=== PATIENT | female | born 2000 | race African-American/Black ===

== ENCOUNTER 2020-05-28 17:54 | Emergency (ER) | payer OTHER ==
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
[2020-05-28] MEDS ORDERED: ACETAMINOPHEN 325 MG TABLET PO STA (18:37)
[2020-05-28] MEDS ORDERED: IBUPROFEN 600 MG TABLET PO STA (18:37)
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
[2020-05-28 19:36] VITALS: BP 122/89
== END 2020-05-28 19:32 | disposition home or self-care (01) ==
LOC: ED 17:54
DX: S16.1XXA Strain of muscle, fascia and tendon at neck level, initial encounter (principal); V43.62XA Car passenger injured in collision with other type car in traffic accident, initial encounter; Y92.410 Unspecified street and highway as the place of occurrence of the external cause
CPT/HCPCS: 72040; 99284; A9270

== ENCOUNTER 2020-06-26 17:04 | Emergency (ER) | payer OTHER ==
[2020-06-26 17:22] LABS: BILIRUBIN,URINE NEGATIVE (NEGATIVE); GLUCOSE, URINE (UA) NEGATIVE (NEGATIVE); KETONES,URINE (UA) TRACE mg/dL (NEGATIVE); LEUKOCYTE ESTERASE, URINE NEGATIVE (NEGATIVE); NITRITE,URINE NEGATIVE (NEGATIVE); OCCULT BLOOD,URINE NEGATIVE (NEGATIVE); PROTEIN,URINE NEGATIVE (NEGATIVE); UROBILINOGEN,URINE 0.2 (NORMAL) E.U./dL (NORMAL)
[2020-06-26 17:24] LABS: CLARITY,URINE CLEAR (CLEAR)
--- NOTE | 2020-06-26 17:38 | ED Physician Documentation ---
History of Present Illness - Stated complaint Stated Complaint: FEM - Chief complaint Chief Complaint: General - History obtained from History obtained from: Patient - Additonal information Additional information: 19-year-old sexually active woman presents tonight asking for a "second opinion" [place]. [place] late May and tested positive for chlamydia. She took Zithromax at that time. Subsequently had follow-up testing which was also positive and was retreated with Zithromax. Now she wants a second opinion not understanding how she have it twice. She has been sexually active in that timeframe with partners that have reportedly tested negative for chlamydia. She has no symptoms. No dysuria, frequency, discharge, pelvic pain, fevers. Review of Systems Constitutional: denies: Fever, Chills Cardiac: denies: Chest pain / pressure, Palpitations Respiratory: denies: Dyspnea, Cough PD PAST MEDICAL HISTORY - Past Surgical History Past Surgical History: No - Allergies Allergies/Adverse Reactions: Allergies Allergy/AdvReac Type Severity Reaction Status Date / Time No Known Drug Allergies Allergy Verified 06/26/20 17:06 - Social History Does the pt smoke?: No Smoking Status: Never smoker Does the pt have substance abuse?: No PD ED PE NORMAL - Vitals Vital signs reviewed: Yes - General General: Alert and oriented X 3, No acute distress - Abdomen Abdomen: Normal bowel sounds, Soft, Non tender - Neuro Neuro: Alert and oriented X 3, Normal speech Results - Vitals Vitals: Vital Signs - 24 hr 06/26/20 17:07 Temperature 37.3 C Heart Rate 72 Respiratory 16 Rate Blood Pressure 120/70 O2 Saturation 100 Oxygen O2 Source Room air - Labs Labs: Laboratory Tests 06/26/20 17:18 Urine Color YELLOW Urine Clarity CLEAR Urine pH 6.0 Ur Specific [place] 1.025 Urine Protein NEGATIVE Urine Glucose (UA) NEGATIVE Urine Ketones TRACE Urine Occult Blood NEGATIVE Urine Nitrite NEGATIVE Urine Bilirubin NEGATIVE Urine Urobilinogen 0.2 (NORMAL) Ur Leukocyte Esterase NEGATIVE Ur Microscopic Review NOT INDICATED Urine Culture Comments NOT INDICATED PD MEDICAL DECISION MAKING - ED course ED course: 19-year-old woman presents for "a second opinion" on asymptomatic STD. She just had Zithromax yesterday, so would not repeat Pending PCR testing. If she is persistently positive would recommend at follow-up she receive doxycycline since she has had 2 rounds of a azithromycin. Departure - Departure Disposition: Home, Self Care Clinical Impression: Concern about STD in female without diagnosis Condition: Good Record reviewed to determine appropriate education?: Yes Instructions: Condom Instruct Put On, ED VD Cervicitis Treated Comments: We will call you if STD testing is positive. I would recommend a course of doxycycline at that juncture since Zithromax seems to have failed treatment. You need to abstain from sexual activity until testing is done. All partners should be tested and treated as well.
[2020-06-26 18:04] VITALS: BP 130/93
== END 2020-06-26 18:16 | disposition home or self-care (01) ==
LOC: ED 17:04
DX: Z11.3 Encounter for screening for infections with a predominantly sexual mode of transmission (principal)
CPT/HCPCS: 81001; 81003; 81599; 87086; 87491; 87591; 87661; 99282; 99283